=== PATIENT | female | born 1955 | race Caucasian/White ===

== ENCOUNTER 2016-12-31 13:43 | Day surgery (SDC) | payer OTHER ==
[~2016-12-31 13:43] MED LIST: ALPR-138 PO; AMBI10TA PO; LEXA10TA PO; LISI-590 PO; PROT40TA PO; VIVELLE DOT
[2016-12-31 14:57] VITALS: BP 150/94; PULSE 72; RESP 16; TEMP 98.6
[2016-12-31] MEDS ORDERED: LIDOCAINE HCL 1% 20 ML VIAL ONE (15:55)
--- NOTE | 2016-12-31 16:37 | RADRPT ---
EXAM DATE/TIME: 12/31/2016 14:47 [place] COMPARISON: No previous studies available for comparison. INDICATIONS : Lymphadenopathy, left neck. MEDICAL HISTORY : Hypertension. Gastroesophageal reflux disease. Sleep apnea. Lymphadenopathy. SURGICAL HISTORY : Hysterectomy. Exploratory laparoscopic lysis of adhesions. ENCOUNTER: Initial ACUITY: > 1 yr PAIN SCORE: 0/10 LOCATION: Left neck ORGAN: Left neck SPECIMENS: Two core specimen(s) submitted for pathologic evaluation. DEVICE: 20 gauge Temno needle Post procedure scanning reveals no hematoma or other complication. The possibility does exist that the tissue obtained will be non-diagnostic. If the sample is non-ramon gnostic a repeat biopsy or surgical biopsy may need to be performed. TECHNIQUE: 1. Ultrasound guidance for needle biopsy. 2. Needle biopsy. The risks, benefits and alternatives to the procedure were explained and verbal and written consent w as obtained. The site was prepped in sterile fashion. Full sterile technique was used, including ca p, mask, sterile gloves and gown and a large sterile sheet. Hand hygiene and 2% chlorhexidine and/or betadine/alcohol prep was utilized per protocol for cutaneous antisepsis. The skin and subcutaneous tissues were infiltrated with local anesthetic solution. Sterile gel and sterile probe cover were u tilized for ultrasound guidance. With the patient on the ultrasound table, images were obtained. I have no outside studies for compari son. Lymphadenopathy is seen throughout the left side of the neck. A large level II lymph node was id entified and targeted during the biopsy. This measures 1.9 1.4 x 0.7 cm in A needle was advanced into the identified target and the number of specimens as above obtained and asencio bmitted for pathologic evaluation. Samples were placed in formalin as well as RPMI fluid. The patient tolerated the procedure well and left the ultrasound suite in stable condition. CONCLUSION: Uncomplicated ultrasound guided needle biopsy of a level II lymph node on the left. Frankie Coreas Jr., MD on December 31, 2016 at 16:34 Board Certified Radiologist. This report was verified electronically.
== END 2016-12-31 16:09 | disposition home or self-care (01) ==
LOC: HRAD 13:43 → HRIP 13:46 → HRAD 16:09
PROVIDERS: ATTEND Family Medicine
DX: R59.9 Enlarged lymph nodes, unspecified (principal); I10 Essential (primary) hypertension; K21.9 Gastro-esophageal reflux disease without esophagitis
CPT/HCPCS: 38505; 76942; 88305; 88341; 88342

== ENCOUNTER 2017-09-05 13:40 | Emergency (ER) | payer OTHER ==
[2017-09-05] MEDS ORDERED: SODIUM CHLORIDE 0.9% FLUSH 10 ML FLUSH IVF (14:15)
[2017-09-05] MEDS: TETANUS/DIPHTHERIA TOXOID ADULT 0.5 ML VIAL IM (14:48)
[2017-09-05 14:52] LABS: AUTOMATED NEUTROPHIL # 2.2 TH/MM3 (1.8-7.7); BASOPHIL % 0.9 % (0.0-2.0); EOSINOPHIL # 0.1 TH/MM3 (0-0.4); EOSINOPHIL % 1.8 % (0.0-4.0); HEMATOCRIT 36.4 % (35.0-46.0); HEMO FLAGS DIFF FINAL; HEMOGLOBIN 12.6 GM/DL (11.6-15.3); LYMPH % 41.3 % (9.0-44.0); LYMPHOCYTE # 1.8 TH/MM3 (1.0-4.8); MEAN CELL VOLUME 88.8 FL (80.0-100.0); MEAN CORPUSCULAR HEMOGLOBIN 30.7 PG (27.0-34.0); MEAN CORPUSCULAR HGB CONC 34.5 % (32.0-36.0); MONO % 6.5 % (0.0-8.0); MONOCYTE # 0.3 TH/MM3 (0-0.9); NEUT % 49.5 % (16.0-70.0); PLATELET COUNT 291 TH/MM3 (150-450); RED BLOOD COUNT 4.09 MIL/MM3 (4.00-5.30); RED CELL DISTRIBUTION WIDTH 13.8 % (11.6-17.2); WHITE BLOOD COUNT 4.4 TH/MM3 (4.0-11.0)
[2017-09-05 15:09] LABS: APTT (PATIENT) 20.3 SEC (24.3-30.1); INTERNATIONAL NORMALIZED RATIO 0.9 RATIO; PROTHROMBIN TIME - PATIENT 9.4 SEC (9.8-11.6)
[2017-09-05 15:57] LABS: BACTERIA, URINE RARE /hpf; BILIRUBIN, URINE NEG (NEG); BLOOD, URINE SMALL (NEG); GLUCOSE,URINE NEG (NEG); KETONE, URINE NEG (NEG); MUCUS URINE FEW /lpf (OCC); NITRITE,URINE NEG (NEG); PH, URINE 5.5 (5.0-8.5); SQUAMOUS EPITHELIAL CELL URINE 7 /hpf (0-5); URINE COLOR YELLOW (YELLW/STRAW); URINE LEUKOCYTE ESTERASE LARGE (NEG)
[2017-09-05 15:58] LABS: COMMENT (UR) CULTURE INDICATED; CULTURE IF INDICATED CULTURE INDICATED
[2017-09-05 16:16] LABS: ALBUMIN 3.8 GM/DL (3.4-5.0); ANION GAP 7 MEQ/L (5-15); AST (GOT) 15 U/L (15-37); BICARBONATE 24.9 MEQ/L (21.0-32.0); BLOOD UREA NITROGEN 18 MG/DL (7-18); CALCIUM 8.7 MG/DL (8.5-10.1); CHLORIDE 110 MEQ/L (98-107); GLOMERULAR FILTRATION RATE 57 ML/MIN (>89); GLUCOSE,RANDOM 78 MG/DL (74-106); POTASSIUM 4.4 MEQ/L (3.5-5.1); SODIUM (NA) 142 MEQ/L (136-145)
[2017-09-05 16:21] LABS: ALKALINE PHOSPHATASE 90 U/L (45-117); ALT (GPT) 23 U/L (10-53); TOTAL BILIRUBIN ADULT 0.3 MG/DL (0.2-1.0); TOTAL PROTEIN 6.8 GM/DL (6.4-8.2); TROPONIN I LESS THAN 0.02 NG/ML (0.02-0.05)
[2017-09-05 16:28] LABS: CREATINE KINASE 86 U/L (26-192)
== END 2017-09-05 18:23 | disposition home or self-care (01) ==
LOC: NEPE 13:40
DX: R55 Syncope and collapse (principal); N39.0 Urinary tract infection, site not specified; S01.01XA Laceration without foreign body of scalp, initial encounter; K21.9 Gastro-esophageal reflux disease without esophagitis; W19.XXXA Unspecified fall, initial encounter; Z23 Encounter for immunization
CPT/HCPCS: 70450; 73610; 80053; 81001; 82550; 84484; 85025; 85610; 85730; 87086; 90471; 90714; 93005; 99285-25